=== PATIENT | male | born 1960 | race Caucasian/White ===

== ENCOUNTER 2022-10-12 22:11 | Emergency (ER) | payer OTHER ==
[~2022-10-12] VITALS: Ht 180.3 cm; Wt 108.0 kg
[2022-10-12 22:49] VITALS: BP 169/88
[2022-10-12 23:01] LABS: COLOR,URINE YELLOW
[2022-10-12 23:02] LABS: AMORPHOUS SEDIMENT,UR RARE AMOR PHOSPHATE /LPF; BACTERIA,URINE NEGATIVE /HPF; BILIRUBIN,URINE NEH (NEGATIVE); CLARITY,URINE CLEAR; GLUCOSE, URINE (UA) NEGATIVE (NEGATIVE); KETONES,URINE NEGATIVE (NEGATIVE); LEUKOCYTE ESTERASE ,URINE TRACE (NEGATIVE); NITRITE,URINE NEGATIVE (NEGATIVE); PROTEIN,URINE NEGATIVE (NEGATIVE); SQUAMOUS EPITHELIAL CELL,UR 0-2 /HPF; WBC,URINE RARE /HPF
[2022-10-12 23:21] LABS: BASOPHILS # (AUTO) 0.1 10^3/uL (0.0-0.1); BASOPHILS % (AUTO) 1 % (0-10); EOSINOPHILS # (AUTO) 0.5 10^3/uL (0.0-0.3); EOSINOPHILS % (AUTO) 4 % (0-10); HEMATOCRIT 48 % (40-54); HEMOGLOBIN 16.3 g/dL (13.3-17.7); LYMPHOCYTES # (AUTO) 3.7 10^3/uL (1.0-4.0); LYMPHOCYTES % (AUTO) 35 % (12-44); MEAN CORPUSCULAR HEMOGLOBIN 29 pg (25-34); MEAN CORPUSCULAR HGB CONC 34 g/dL (32-36); MEAN CORPUSCULAR VOLUME 86 fL (80-99); MEAN PLATELET VOLUME 9.3 fL (9.0-12.2); MONOCYTES # (AUTO) 0.8 10^3/uL (0.0-1.0); MONOCYTES % (AUTO) 7 % (0-12); NEUTROPHILS # (AUTO) 5.6 10^3/uL (1.8-7.8); NEUTROPHILS % (AUTO) 53 % (42-75); PLATELET COUNT 222 10^3/uL (130-400); WHITE BLOOD COUNT 10.6 10^3/uL (4.3-11.0)
[2022-10-12] MEDS ORDERED: ONDANSETRON INJECTION 4 MG/2 ML (SDV) IVP ONE (23:30)
[2022-10-12] MEDS ORDERED: fentaNYL INJECTION 100 MCG/2 ML VIAL IVP ONE (23:30)
--- NOTE | 2022-10-12 23:39 | ED Abdominal Pain ---
General Chief Complaint: Abdominal/GI Problems Stated Complaint: ABD PAIN Nursing Triage Note: Pt presents with c/o sudden onset abdominal pain that started at approx 2100 tonight. Pt states pain is under rib cage all the way across and flanks. Last ate at 183, had a drink of alcohol at 1999. Unable to sit still, has had dry heaves. hernia repair surgery 2 years ago. Source of Information: Patient, Family Exam Limitations: No Limitations History of Present Illness Date Seen by Provider: Oct 12, 2022 Time Seen by Provider: 22:14 Initial Comments This 62 year old gentleman presents to the ER with intense upper abdominal pain and vomiting that started fairly abruptly this eveniong about 2100. He ate about 1830 and last consumed alcohol about 1999. He denies any fever or diarrhea. There was no blood in his emisis. He denies prior episodes. He admits to drinking the equivalent of 6 oz in hard alcohol daily. His PCP is Hernandez Huerta in [place]. Allergies and Home Medications Allergies Coded Allergies: No Known Drug Allergies (Unverified , 10/12/22) Patient Home Medication List Home Medication List Reviewed: Yes Hydrocodone/Acetaminophen (Hydrocodone-Acetamin 5-325 mg) 5 Mg-325 Mg Tablet, 1 TAB PO Q4H PRN for PAIN-MODERATE (5-7) Prescribed by: KAIA CLARK on 10/13/22209 Ondansetron (Ondansetron Odt) 4 Mg Tab.rapdis, 4 MG SL Q4H PRN for NAUSEA/VOMITING Prescribed by: KAIA CLARK on 10/13/22208 Pantoprazole Sodium (Protonix) 40 Mg Tablet.dr, 40 MG PO DAILY Prescribed by: KAIA CLARK on 10/13/22208 Review of Systems Review of Systems Constitutional: no symptoms reported EENTM: No Symptoms Reported Respiratory: No Symptoms Reported Cardiovascular: No Symptoms Reported Gastrointestinal: See HPI Genitourinary: No Symptoms Reported Musculoskeletal: no symptoms reported Skin: no symptoms reported Psychiatric/Neurological: No Symptoms Reported Endocrine: No Symptoms Reported Past Pbomgxc-Trpzee-Jtfxkx Hx Patient Social History Tobacco Use?: No Use of E-Cig and/or Vaping dev: No Substance use?: No Alcohol Use?: Yes Alcohol Frequency: Daily Past Medical History Surgeries: Yes (Renal cyst) Abdominal (hernia), Orthopedic (arm fracture), Prostatectomy Respiratory: No Cardiac: Yes High Cholesterol, Hypertension Neurological: No Reproductive Disorders: No Genitourinary: Yes Benign Prostatic Hyperpl Gastrointestinal: No Musculoskeletal: No Endocrine: No HEENT: No Cancer: No Psychosocial: No Physical Exam Vital Signs Vital Signs - First Documented 10/12/22 22:49 Temp 36.2 Pulse 63 Resp 18 B/P (MAP) 169/88 (115) Capillary Refill : Less Than 3 Seconds Height/Weight/BMI Height: '" Weight: lbs. oz. kg; 33.00 BMI Method: General Appearance: WD/WN, moderate distress HEENT: PERRL/EOMI, normal ENT inspection Neck: normal inspection Respiratory: lungs clear, normal breath sounds, no respiratory distress Cardiovascular: regular rate, rhythm, no edema, no murmur Gastrointestinal: normal bowel sounds, soft; No distended; tenderness (across the upper abdomen) Extremities: normal inspection Neurologic/Psychiatric: no motor/sensory deficits, alert, oriented x 3 Skin: normal color, warm/dry Progress/Results/Core Measures Results/Orders Lab Results Laboratory Tests Test 10/12/22 22:39 10/12/22 23:13 Range/Units Urine Color YELLOW Urine Clarity CLEAR Urine pH 7.0 5-9 Urine Specific [place] 1.020 1.016-1.022 Urine Protein NEGATIVE NEGATIVE Urine Glucose (UA) NEGATIVE NEGATIVE Urine Ketones NEGATIVE NEGATIVE Urine Nitrite NEGATIVE NEGATIVE Urine Bilirubin NEH NEGATIVE Urine Urobilinogen 0.2 < = 1.0 MG/DL Urine Leukocyte Esterase TRACE H NEGATIVE Urine RBC (Auto) NEGATIVE NEGATIVE Urine RBC NONE /HPF Urine WBC RARE /HPF Urine Squamous Epithelial Cells 0-2 /HPF Urine Crystals NONE /LPF Urine Amorphous Sediment RARE MERCED PHOSPHATE H /LPF Urine Bacteria NEGATIVE /HPF Urine Casts NONE /LPF Urine Mucus NEGATIVE /LPF Urine Culture Indicated NO White Blood Count 10.6 4.3-11.0 10^3/uL Red Blood Count 5.56 H 4.30-5.52 10^6/uL Hemoglobin 16.3 13.3-17.7 g/dL Hematocrit 48 40-54 % Mean Corpuscular Volume 86 80-99 fL Mean Corpuscular Hemoglobin 29 25-34 pg Mean Corpuscular Hemoglobin Concent 34 32-36 g/dL Red Cell Distribution Width 12.7 10.0-14.5 % Platelet Count 222 130-400 10^3/uL Mean Platelet Volume 9.3 9.0-12.2 fL Immature Granulocyte % (Auto) 1 % Neutrophils (%) (Auto) 53 42-75 % Lymphocytes (%) (Auto) 35 12-44 % Monocytes (%) (Auto) 7 0-12 % Eosinophils (%) (Auto) 4 0-10 % Basophils (%) (Auto) 1 0-10 % Neutrophils # (Auto) 5.6 1.8-7.8 10^3/uL Lymphocytes # (Auto) 3.7 1.0-4.0 10^3/uL Monocytes # (Auto) 0.8 0.0-1.0 10^3/uL Eosinophils # (Auto) 0.5 H 0.0-0.3 10^3/uL Basophils # (Auto) 0.1 0.0-0.1 10^3/uL Immature Granulocyte # (Auto) 0.1 0.0-0.1 10^3/uL Sodium Level 141 135-145 MMOL/L Potassium Level 3.8 3.6-5.0 MMOL/L Chloride Level 103 98-107 MMOL/L Carbon Dioxide Level 24 21-32 MMOL/L Anion Gap 14 5-14 MMOL/L Blood Urea Nitrogen 14 7-18 MG/DL Creatinine 1.40 H 0.60-1.30 MG/DL Estimat Glomerular Filtration Rate 57 BUN/Creatinine Ratio 10 Glucose Level 124 H 70-105 MG/DL Calcium Level 8.9 8.5-10.1 MG/DL Corrected Calcium 8.9 8.5-10.1 MG/DL Total Bilirubin 0.5 0.1-1.0 MG/DL Aspartate Amino Transf (AST/SGOT) 19 5-34 U/L Alanine Aminotransferase (ALT/SGPT) 23 0-55 U/L Alkaline Phosphatase 66 40-136 U/L C-Reactive Protein High Sensitivity 0.53 H 0.00-0.50 MG/DL Total Protein 6.9 6.4-8.2 GM/DL Albumin 4.0 3.2-4.5 GM/DL Lipase 60 8-78 U/L Serum Alcohol 11 H <10 MG/DL My Orders Orders - KAIA AL MD Ua Culture If Indicated (10/12/22 22:14) Ondansetron Injection (Ondansetron Inj (10/12/22 23:30) Fentanyl Injection (Fentanyl Injection (10/12/22 23:30) Cbc With Automated Diff (10/12/22 23:17) Comprehensive Metabolic Panel (10/12/22 23:17) Hs C Reactive Protein (10/12/22 23:17) Lipase (10/12/22 23:17) Ed Iv/Invasive Line Start (10/12/22 23:17) Alcohol (10/12/22 23:30) Pantoprazole Injection (Pantoprazole Inj (10/12/22 23:45) Morphine Injection (Morphine Injection (10/12/22 23:45) Albuterol Hfa Inhaler (Albuterol Hfa Inh (10/12/22 23:53) Ct Abdomen/Pelvis W (10/13/22 00:01) Ns Iv 500 Ml (Ns Iv 500 Ml) (10/13/22 01:30) Promethazine Injection (Promethazine I (10/13/22 01:30) Lidocaine 2% Viscous 15 Ml (Xylocaine Vi (10/13/22 01:30) Antacid Suspension (Antacid Suspension (10/13/22 01:30) Medications Given in ED Vital Signs/I&O 10/12/22 22:49 Temp 36.2 Pulse 63 Resp 18 B/P (MAP) 169/88 (115) Blood Pressure Mean: 115 Progress Progress Note #1: Time: 23:37 Progress Note Chief complaint reviewed at 2214 and urinalysis ordered. I discussed triage with the nurse at 2315 and placed orders accordingly. I was in the room to interview and examine the patient at 2321. Fentanyl 50 mcg IV improved his pain from 9/10 down to 5/10. Zofran 8 mg IV resolved his nausea. Morphine was o rdered for rebound pain when it occurs. IV fluids have been ordered. Labs are pending and CT is anticipated. Protonix will be given for upper abdominal pain and GI prophylaxis. Progress Note #2: Progress Note Labs were reviewed and interpreted by me. Creatinine was mildly elevated with GFR of 57. Labs were otherwise unremarkable including CBC, CMP, Lipase, UA, CRP. GI cocktail improved pain. CT was obtained. No acute abnormalities were appreciated by my interpretation or [facility] report. Diagnostic Imaging Diagonstic Imaging: CT Plain Films/CT/US/NM/MRI: abdomen, pelvis Comments [facility] report reviewed with no acute abnormalities detected. Departure Impression Primary Impression: Upper abdominal pain Additional Impression: Nausea & vomiting Qualified Codes: R11.2 - Nausea with vomiting, unspecified Disposition: HOME, SELF-CARE Condition: Improved Departure-Patient Inst. Decision time for Depature: 02:06 Referrals: ANDRES HUERTA (PCP/Family) Primary Care Physician Patient Instructions: Abdominal Pain, Adult ED, Gastritis ED, Ulcer and Gastritis Diet Add. Discharge Instructions: The exact cause of your pain is uncertain, but based on your response to treatment and your work-up in the ER, gastritis (inflammation of the stomach lining) or ulcer appears to be a likely cause. Start with a noncarbonated clear liquid diet. Gradually advance your diet with small quantities of bland food as tolerated. Start Protonix (pantoprazole) as prescribed and continue until otherwise instructed. Take Zofran (ondansetron) as prescribed for nausea. For mild pain you may take Tylenol (acetaminophen) up to 1000 mg every 6 hours as needed. For more severe pain, take hydrocodone as prescribed. You may also try Tums or a generic equivalent per package instructions. Gradually taper down on your alcohol consumption over several days. Avoid abruptly stopping alcohol consumption as this may cause serious withdrawal symptoms. Avoid the following: Eating large meals, eating close to bedtime, caffeine, carbonation, citrus fruits and juices, tomato products, chocolate, mints, spicy foods, fatty/greasy foods, alcohol, tobacco, NSAID medications such as ibuprofen or naproxen, and anything else you know irritate your stomach. Follow-up with your primary care provider soon as possible. If pain persists, you should discuss opportunities for further evaluation such as upper endoscopy, gallbladder ultrasound, etc. Return to the emergency room if symptoms worsen despite following these instructions. All discharge instructions reviewed with patient and/or family. Voiced understanding. Scripts Hydrocodone/Acetaminophen (Hydrocodone-Acetamin 5-325 mg) 5 Mg-325 Mg Tablet 1 TAB PO Q4H PRN for PAIN-MODERATE (5-7), #6 TAB Prov: KAIA AL MD 10/13/22 Ondansetron (Ondansetron Odt) 4 Mg Tab.rapdis 4 MG SL Q4H PRN for NAUSEA/VOMITING, #10 TAB Prov: KAIA AL MD 10/13/22 Pantoprazole Sodium (Protonix) 40 Mg Tablet.dr 40 MG PO DAILY, #30 TAB Prov: KAIA AL MD 10/13/22 KAIA AL MD Oct 12, 2022 23:39
[2022-10-12 23:43] LABS: BILIRUBIN,TOTAL 0.5 MG/DL (0.1-1.0); CALCIUM 8.9 MG/DL (8.5-10.1); CREATININE SERUM 1.4 MG/DL (0.60-1.30); POTASSIUM 3.8 MMOL/L (3.6-5.0); TOTAL PROTEIN 6.9 GM/DL (6.4-8.2)
[2022-10-12] MEDS ORDERED: PANTOPRAZOLE INJECTION 40 MG VIAL IV ONE (23:45)
[2022-10-12] MEDS ORDERED: morphine INJ 4 MG/ML 1 ML (VIAL/SYRINGE) IVP ONE (23:45)
[2022-10-12] MEDS ORDERED: RT-ALBUTEROL HFA 8.5 GM INHALER IH STA (23:53)
[2022-10-13] MEDS ORDERED: NS IV 500 ML 500 ML IV ONE (01:30)
[2022-10-13] MEDS ORDERED: ANTACID SUSPENSION 30 ML UDC PO ONE (01:30)
[2022-10-13] MEDS ORDERED: LIDOCAINE 2% VISCOUS 15 ML UDC PO ONE (01:30)
[2022-10-13] MEDS ORDERED: PROMETHAZINE INJ 25 MG/ML VIAL IVP ONE (01:30)
[2022-10-13] MEDS ORDERED: ONDA4TAB11 SL (02:09)
[2022-10-13] MEDS ORDERED: ACHD5005 PO (02:09)
[2022-10-13] MEDS ORDERED: PANT40TA2 PO (02:09)
--- NOTE | 2022-10-13 07:41 | Diagnostic Imaging Report ---
PROCEDURE: CT abdomen and pelvis with contrast. TECHNIQUE: Multiple contiguous axial images were obtained through the abdomen and pelvis after administration of intravenous contrast. Auto Exposure Controls were utilized during the CT exam to meet ALARA standards for radiation dose reduction. All CT scans use one or more of the following dose optimizing techniques: automated exposure control, MA and/or KvP adjustment based on patient size and exam type or iterative reconstruction. INDICATION: Nausea and vomiting, epigastric pain. COMPARISON: None FINDINGS: There is dependent atelectasis in the lung bases. The heart is normal in size. The liver demonstrates no focal lesions. The spleen appears normal. The pancreas is normal. The adrenal glands appear normal. The kidneys demonstrate no enhancing lesions. There is cortical scarring in the superior pole of the left kidney with a small cyst. There is no hydronephrosis. The bowel loops are nondistended without obstruction. The appendix is normal. No free air or free fluid is seen. There is no lymphadenopathy. There is diverticulosis in the sigmoid colon without diverticulitis. There is a small fat-containing left inguinal hernia. There is a heterogeneous nodularity at the superior left prostate gland. The aorta has atherosclerosis but appears normal in caliber. There are degenerative changes throughout the spine. IMPRESSION: 1. No acute abnormalities seen in the abdomen and pelvis. 2. Heterogeneous nodularity at the superior left prostate. Consider correlation with PSA and if indicated, nonemergent MRI could be considered. No significant changes from the preliminary report. Dictated by: Dictated on workstation # [id number]
== END 2022-10-13 02:25 | disposition home or self-care (01) ==
LOC: ER 22:14
DX: R10.10 Upper abdominal pain, unspecified (principal); R11.2 Nausea with vomiting, unspecified; Z28.310 Unvaccinated for COVID-19
CPT/HCPCS: 74177; 80053; 81000; 83690; 85025; 86141; 99284; G0480; 36415; 80320